=== PATIENT | female | born 1970 | race Caucasian/White ===

== ENCOUNTER → 2021-03-28 | Outpatient (CLI) | payer OTHER ==
[~2021-03-28] MED LIST: CALCIUM CITRAT1 EAC7 PO; MELATONIN3 M1 PO; SUPER THERAVIT1 EACH PO
[2021-03-28 13:42] LABS: HEMATOCRIT 39.3 % (37.0-47.0); HEMOGLOBIN 12.9 gm/dL (12.0-15.0); MCH 28.5 pg (26.0-34.0); MCHC 32.9 g/dL (28.0-37.0); MCV 86.6 fL (80.0-100.0); RBC 4.54 mil/uL (4.20-5.00); RDW 14.5 % (10.5-14.5); WBC 5.9 thou/uL (4.0-11.0)
[2021-03-28 13:43] LABS: URINE BILIRUBIN NEGATIVE (Negative); URINE BLOOD NEGATIVE (Negative); URINE CLARITY CLEAR; URINE COLOR YELLOW; URINE GLUCOSE-RANDOM* NEGATIVE (Negative); URINE KETONES NEGATIVE (Negative); URINE LEUKOCYTES-REFLEX NEGATIVE (Negative); URINE NITRITE-REFLEX NEGATIVE (Negative); URINE PROTEIN (DIPSTICK) NEGATIVE (Negative); URINE UROBILINOGEN 0.2 E.U./dl (0.2-1.0)
--- NOTE | 2021-03-28 13:53 | EKG ---
[address] [address] ELECTROCARDIOGRAM REPORT Name: JENNIFER MAGAÑA Room #: [facility]#: [id number] Admission: 03/28/21 Attend Phys: Kyra Whaley Discharge: Date of : 68 Report #: [id number] [facility] Test Date: 2021-03-28 Test Time: 13:38:30 Pat Name: JENNIFER MAGAÑA Department: Room: Gender: F Benefits Coordinator: Gabby WATERS : 1970 Requested By: Roberto Galloway Order Number: [id number] MD: Bob Gonzalez Measurements Intervals [place] Rate: 57 P: -15 HI: 124 QRS: 30 QRSD: 83 T: 45 QT: 416 QTc: 405 Interpretive Statements Sinus rhythm No previous ECG available for comparison Electronically Signed On 03-28-2021 13:52:46 QUALITY ASSURANCE ANALYST by Bob Gonzalez [email or web address] <ELECTRONICALLY SIGNED> By: Bob Gonzalez MD, [facility] 03/28/21 1352 1338 1338 Bob Gonzalez MD, FACC /EPI
[2021-03-28 14:00] LABS: ALBUMIN 3.3 g/dL (3.4-5.0); CALCIUM 8.7 mg/dL (8.5-10.1); CREATININE 0.7 mg/dL (0.6-1.0); POTASSIUM 4.2 mmol/L (3.5-5.1)
[2021-03-28 14:01] LABS: INR 0.98; PROTIME 10.7 Seconds (10.5-12.1)
== END ==
LOC: PAC 12:34
PROVIDERS: ATTEND Orthopaedic Surgery
DX: Z01.818 Encounter for other preprocedural examination (principal); M13.862 Other specified arthritis, left knee

== ENCOUNTER → 2021-04-08 | Outpatient (CLI) | payer OTHER | LOC: LAB | PROVIDERS: ATTEND Student in an Organized Health Care Education/Training Program | DX: Z01.818 Encounter for other preprocedural examination (principal); Z20.822 Contact with and (suspected) exposure to COVID-19 ==

== ENCOUNTER 2021-04-11 06:11 | Day surgery (SDC) | payer OTHER ==
[~2021-04-11] VITALS: Ht 162.6 cm; Wt 102.1 kg
[2021-04-11 06:55] VITALS: BP 107/55
[2021-04-11 19:10] VITALS: BP 107/51
--- NOTE | 2021-04-11 21:52 | NUR ---
ASUMED PT CARE AT 1900.PT DENIED PAIN SO FAR.PT'S SPOUSE AT BEDSIDE AT SHIFT CHANGE.SCD,PINO DRSG AND POLAR PACK IN PLACE.PT CONT WITH IVF AND IV ABX ORDERED.PT ABLE TO MAKE HER NEEDS KNOWN.PT UP WITH ASSIST TO BSC.DRAKE WELL.PTOBSERVED USING HER INCENTIVE SPIROMETER.CALL LIGHT WITHIN REACH.
== END 2021-04-11 23:59 | disposition still patient (30) ==
LOC: OR → 4S 16:49 → OR 17:27
PROVIDERS: ATTEND Orthopaedic Surgery
DX: M17.12 Unilateral primary osteoarthritis, left knee (principal); Z98.890 Other specified postprocedural states; Z90.49 Acquired absence of other specified parts of digestive tract
CPT/HCPCS: 10102; 50010; 50101; 50415; 50954; 51225; 51320; 53000; 53078; 53365; 56527; 56528; 57095; 57103; 57110; 57180; 58637; 58847; 62110; 62900; 70005